=== PATIENT | female | born 1975 | race Caucasian/White ===

== ENCOUNTER 2016-07-19 16:33 | Observation (INO) | payer BC ==
[2016-07-19] MEDS ORDERED: AMBIEN PO PRN (17:43)
[2016-07-19] MEDS ORDERED: XANAX PO PRN (17:43)
--- NOTE | 2016-07-19 17:56 | DR.H&P ---
H&P - History & Physical for Day of: H&P Date: 07/19/16 - Chief Complaint Chief Complaint: CP, SOB - Allergies Allergies/Adverse Reactions: Allergies Allergy/AdvReac Type Severity Reaction Status Date / Time No Known Drug Allergy Allergy Verified 01/05/15 05:44 - History of Present Illness History of Present Illness: 40 [address] ADM[address] BRUCE OFFICE WITH CO CHEST PAIN AND SOB. PT HAS STRONG FAMILY HISTORY OF CAD. PT HAS UNCLE WITH CABG IN HIS LATE 30'S. PT CO INCREASE STRESS AT HOME, PT IS TAKING XANAX FOR ANXIETY ATTACKS WITHOUT RELIEF OF SOB. PT FEELS LIKE IS "SMOTHERING" - Past Medical History Past Medical History: Anxiety, Depression, GERD, Headaches - Past Surgical History Surgical History: Cholecystectomy - Family History Family Medical History: Diabetes Mellitus - Social History Does patient currently use any type of tobacco product: No Have you used tobacco products in the last 12 months: No Type of Tobacco Use: None Does any household member use tobacco: No Alcohol Use: None Drug Use: None - Review of Systems Constitutional: Weakness Eyes: No Symptoms Reported ENT: No Symptoms Reported Respiratory: Shortness of Breath Cardiovascular: Chest Pain Gastrointestinal: No Symptoms Reported Genitourinary: No Symptoms Reported Musculoskeletal: No Symptoms Reported Skin: No Symptoms Reported Neurological: No Symptoms Reported - Physical Exam Vital Signs: Blood Pressure 121/75 Oriented: Normal Eyes: Normal Ear: Normal Nose: Normal Throat: Normal Respiratory: Clear Throughout Cardiovascular: Normal. negative: Edema : Normal Auscultation: Bowel Sounds: Normal Palpation: Normal Tenderness: Epigastric Skin: Normal Psychiatric: Anxiety Mood Description: Sad Speech Pattern: Clear, Appropriate - Assessment/Plan (1) Chest pain Qualifiers: Chest pain type: C Ischemic chest pain type: I Status: Acute Plan: ADMIT, CARDIAC MONITORING. SERIAL CARDIAC ENZYMES, EKG'S. FLP Q AM. BP AND LIPID CONTROL. CXR ON ADMISSION, D DIMER (2) Shortness of breath Status: Acute (3) Anxiety as acute reaction to exceptional stress Status: Acute
[2016-07-19] MEDS ORDERED: LEXAPRO PO SCH (18:00)
[2016-07-19 18:13] LABS: BASOPHILS # (AUTO) 0.1 X10^3/uL (0.0-0.1); BASOPHILS % (AUTO) 0.9 % (0.2-1.0); EOSINOPHILS # (AUTO) 0.2 x10^3/uL (0.0-0.2); EOSINOPHILS % (AUTO) 1.9 % (0.9-2.9); HEMATOCRIT 37.2 % (36.0-47.0); HEMOGLOBIN 12.2 g/dL (12.0-16.0); LYMPHOCYTES # (AUTO) 2.9 X10^3/uL (1.3-2.9); LYMPHOCYTES % (AUTO) 30.3 % (21.0-51.0); MEAN CORPUSCULAR HEMOGLOBIN 27.6 pg (27.0-34.0); MEAN CORPUSCULAR HGB CONC 32.7 g/dL (33.0-35.0); MEAN CORPUSCULAR VOLUME 84.2 fL (80.0-100.0); MEAN PLATELET VOLUME 8.8 fL (7.4-11.0); MONOCYTES # (AUTO) 0.5 x10^3/uL (0.3-0.8); MONOCYTES % (AUTO) 5.3 % (0.0-13.0); NEUTROPHILS # (AUTO) 5.9 x10^3/uL (2.2-4.8); NEUTROPHILS % (AUTO) 61.6 % (42.0-75.0); PLATELET COUNT 282 X10^3/uL (150.0-450.0); RED BLOOD COUNT 4.41 X10^6/uL (3.5-5.4); RED CELL DISTRIBUTION WIDTH 13.1 % (11.6-16.5); WHITE BLOOD COUNT 9.6 X10^3/uL (3.6-10.0)
[2016-07-19 18:21] LABS: ALANINE AMINOTRANSFERASE 36 Units/L (12-78); ALBUMIN 3.8 g/dL (3.4-5.0); ALKALINE PHOSPHATASE 57 Units/L (46-116); ASPARTATE AMINO TRANSFERASE 18 Units/L (15-37); BLOOD UREA NITROGEN 8 mg/dL (7-18); CALCIUM 8.6 mg/dL (8.5-10.1); CARBON DIOXIDE 27.5 mmol/L (21-32); CHLORIDE 104 mmol/L (98-107); CREATININE 0.96 mg/dL (0.55-1.02); GLUCOSE 93 mg/dL (65-99); MAGNESIUM 1.8 mg/dL (1.7-2.9); SODIUM 142 mmol/L (136-145); eGFR BLACK RACES > 60 (>60); eGFR NON BLACK RACES > 60 (>60)
[2016-07-19] MEDS ORDERED: LEXAPRO ONE (18:32)
[2016-07-19] MEDS: PROTONIX INJ 40 MG VIAL IVP SCH (18:33)
[2016-07-19 18:35] LABS: CKMB % 0.9 % (<4); CREATINE KINASE 112 Units/L (26-192); CREATINE KINASE MB < 1.0 ng/mL (0-4.0); TROPONIN I < 0.02 ng/mL (0-1.5)
[2016-07-19 18:37] VITALS: BMI 29.1
[2016-07-19] MEDS: NORCO 7.5/325 MG TAB PO PRN ×2 (19:55→21:31)
[2016-07-19] MEDS: ZOFRAN INJ 4 MG VIAL IVP PRN (19:55)
[2016-07-19 19:57] LABS: BILIRUBIN,URINE NEGATIVE (NEGATIVE); BLOOD/HEMOGLOBIN,URINE 2+ (NEGATIVE); GLUCOSE, URINE NEGATIVE (NEGATIVE); KETONES,URINE NEGATIVE (NEGATIVE); LEUKOCYTE ESTERASE ,URINE 2+ (NEGATIVE); NITRITES,URINE NEGATIVE (NEGATIVE); PROTEIN,URINE NEGATIVE (NEGATIVE); UROBILINOGEN,URINE NORMAL (NORMAL)
--- NOTE | 2016-07-19 20:05 | RAD ---
Chest AP portable Indication: Chest pain and dyspnea. Findings: There is no pneumothorax or effusion. There is no consolidation. Heart size is normal. Impression: No acute chest process or change from May 19, 2011 radiograph. Reported By:
[2016-07-19 20:06] LABS: APPEARANCE,URINE HAZY (CLEAR); BACTERIA,URINE TRACE /HPF (NEGATIVE); COLOR,URINE YELLOW (YELLOW); RBC,URINE 0-2 /HPF (NEGATIVE); SQUAMOUS EPITHELIAL CELL,UR RARE /HPF (NEGATIVE)
[2016-07-20] MEDS: PHENERGAN INJ 25 MG IV PRN ×2 (00:10→10:38)
[2016-07-20 00:51] LABS: CREATINE KINASE 100 Units/L (26-192); CREATINE KINASE MB < 1.0 ng/mL (0-4.0); TROPONIN I < 0.02 ng/mL (0-1.5)
[2016-07-20 05:51] LABS: CHOL/HDL RATIO 5.4 (0.0-5.0)
[2016-07-20 06:12] LABS: CKMB % 1.1 % (<4); CREATINE KINASE 92 Units/L (26-192); CREATINE KINASE MB < 1.0 ng/mL (0-4.0); TROPONIN I < 0.02 ng/mL (0-1.5)
[2016-07-20] MEDS ORDERED: LEXAPRO ONE (08:25)
[2016-07-20] MEDS: ZOFRAN INJ 4 MG VIAL IVP PRN (08:50)
[2016-07-20] MEDS: PROTONIX INJ 40 MG VIAL IVP SCH (08:50)
[2016-07-20] MEDS ORDERED: LEXAPRO PO SCH (09:00)
[2016-07-20] MEDS ORDERED: VISTARIL PO ONE (12:13)
[2016-07-20 13:03] VITALS: BP 108/71
== END 2016-07-20 13:25 | disposition home or self-care (01) ==
LOC: ICU 16:33
PROVIDERS: ADMIT Internal Medicine; ATTEND Internal Medicine
DX: R07.89 Other chest pain (principal); R06.02 Shortness of breath; F32.89 Other specified depressive episodes; K21.9 Gastro-esophageal reflux disease without esophagitis; R51 Headache; F43.0 Acute stress reaction; F41.8 Other specified anxiety disorders
CPT/HCPCS: 36415; 71010; 80053; 80061; 81001; 82550; 82553; 83735; 84484; 85025; 85378; 85610; 93005; 93010; 94760; A4216; A4222; C9113; Q0177; G0378; J2405; J2550

== ENCOUNTER 2018-07-25 10:16 | Inpatient (IN) ==
[2018-07-25] MEDS ORDERED: ZOFRAN INJ 4 MG VIAL IVP PRN (11:28)
[2018-07-25 11:48] LABS: BASOPHILS % (AUTO) 0.3 % (0.2-1.0); EOSINOPHILS # (AUTO) 0.3 x10^3/uL (0.0-0.2); EOSINOPHILS % (AUTO) 2.1 % (0.9-2.9); HEMATOCRIT 43.8 % (36.0-47.0); HEMOGLOBIN 14.5 g/dL (12.0-16.0); LYMPHOCYTES # (AUTO) 1.3 X10^3/uL (1.3-2.9); LYMPHOCYTES % (AUTO) 8.5 % (21.0-51.0); MEAN CORPUSCULAR HEMOGLOBIN 29.4 pg (27.0-34.0); MEAN CORPUSCULAR VOLUME 88.9 fL (80.0-100.0); MEAN PLATELET VOLUME 8.8 fL (7.4-11.0); MONOCYTES # (AUTO) 0.6 x10^3/uL (0.3-0.8); MONOCYTES % (AUTO) 3.6 % (0.0-13.0); NEUTROPHILS # (AUTO) 13.1 x10^3/uL (2.2-4.8); NEUTROPHILS % (AUTO) 85.5 % (42.0-75.0); PLATELET COUNT 324 X10^3/uL (150.0-450.0); RED BLOOD COUNT 4.92 X10^6/uL (3.5-5.4); RED CELL DISTRIBUTION WIDTH 12.6 % (11.6-16.5); WHITE BLOOD COUNT 15.3 X10^3/uL (3.6-10.0)
[2018-07-25 11:59] LABS: ALANINE AMINOTRANSFERASE 87 Units/L (12-78); ALBUMIN 4.3 g/dL (3.4-5.0); ALKALINE PHOSPHATASE 107 Units/L (46-116); AMYLASE 37 Units/L (25-115); ASPARTATE AMINO TRANSFERASE 111 Units/L (15-37); BLOOD UREA NITROGEN 8 mg/dL (7-18); CARBON DIOXIDE 21.4 mmol/L (21-32); CHLORIDE 105 mmol/L (98-107); CREATININE 0.82 mg/dL (0.55-1.02); LIPASE 341 Units/L (73-393); SODIUM 140 mmol/L (136-145); TOTAL PROTEIN 8.5 g/dL (6.4-8.2); eGFR NON BLACK RACES > 60 (>60)
[2018-07-25] MEDS: NS 1000 ML 1,000 ML IV SCH ×2 (11:59→20:31)
[2018-07-25] MEDS: REGLAN INJ 10 MG VIAL IVP PRN (11:59)
[2018-07-25] MEDS: MORPHINE SULFATE INJ 2 MG INJ IVP PRN ×2 (12:00→20:30)
--- NOTE | 2018-07-25 12:07 | RAD ---
HISTORY: Abdominal pain, nausea, vomiting Study: Flat and upright abdomen, PA chest Comparison: None Findings: The heart is within normal limits in size. The dayanara are normal. The lung palacios are clear. The abdominal gas pattern is nonspecific and nonobstructive. There is a question of a mild right lower quadrant ileus. No pneumoperitoneum is identified. The regional skeleton is intact. The patient is status post cholecystectomy. IMPRESSION: Lungs clear Mild right lower quadrant ileus. A right lower quadrant inflammatory process should be clinically excluded. Reported By:
[2018-07-25 12:28] LABS: BILIRUBIN,URINE NEGATIVE (NEGATIVE); BLOOD/HEMOGLOBIN,URINE 2+ (NEGATIVE); GLUCOSE, URINE NEGATIVE (NEGATIVE); KETONES,URINE NEGATIVE (NEGATIVE); LEUKOCYTE ESTERASE ,URINE NEGATIVE (NEGATIVE); NITRITES,URINE NEGATIVE (NEGATIVE); PROTEIN,URINE NEGATIVE (NEGATIVE); UROBILINOGEN,URINE NORMAL (NORMAL)
[2018-07-25 12:39] LABS: APPEARANCE,URINE CLEAR (CLEAR); COLOR,URINE YELLOW (YELLOW); RBC,URINE 0-2 /HPF (NONE SEEN)
[2018-07-25 12:40] LABS: BACTERIA,URINE NEGATIVE /HPF (NEGATIVE); SQUAMOUS EPITHELIAL CELL,UR RARE /HPF (NEGATIVE)
--- NOTE | 2018-07-25 17:37 | DR.H&P ---
H&P - History & Physical for Day of: H&P Date: 07/25/18 - Chief Complaint Chief Complaint: ABDOMINAL PAIN, N/V/D - History of Present Illness History of Present Illness: 42 WF DIRECT ADMITTED FROM DR BRUCE WITH CO VIRUS SYMPTOMS FOR OVER 2 WEEKS. PT HAD N/V/D 2 WEEKS AGO, TREATED WITH PO PHENERGAN, ZOFRAN AND PO HYDRATION. PT CONTINUES WITH CO ABDOMINAL PAIN, N/V, BLOATING. PT STATES SHE CANNOT EAT DUE TO SEVERE ABDOMINAL PAIN. PT HAS BEEN EXPOSED TO C-DIFF INFECTION. PT REPORTS "SULFUR BURPS" PT ADMITTED FOR TREATMENT OF DEHYDRATION, ABDOMINAL PAIN - Past Medical History Past Medical History: Anxiety, Depression, GERD, Headaches - Past Surgical History Surgical History: Cholecystectomy, Tonsillectomy - Family History Family Medical History: Diabetes Mellitus - Social History Does patient currently use any type of tobacco product: No Have you used tobacco products in the last 12 months: No Type of Tobacco Use: None Does any household member use tobacco: No Alcohol Use: None Drug Use: None - Medications Home Medications: No Known Drug Allergies Allergy (Verified 07/25/18 11:02) CONTINUE taking the following medications bupropion HCl 1 tab PO DAILY 07/25/18 [History] metoclopramide HCl [Reglan] 10 mg PO QID PRN 07/25/18 [History] - Review of Systems Constitutional: Weakness Eyes: No Symptoms Reported ENT: No Symptoms Reported Respiratory: No Symptoms Reported Cardiovascular: No Symptoms Reported Gastrointestinal: No Symptoms Reported Genitourinary: No Symptoms Reported Musculoskeletal: No Symptoms Reported Skin: No Symptoms Reported Neurological: Weakness - Physical Exam Vital Signs: Temperature 97.9 F Pulse Rate [Left Brachial] 80 Pulse Rate [Right Brachial] 93 Respiratory Rate 20 Blood Pressure [Right Arm] 122/59 Blood Pressure [Left Arm] 93/53 Blood Pressure 108/71 O2 Sat by Pulse Oximetry 99 Oriented: Normal Eyes: Normal Ear: Normal Nose: Normal Throat: Dry Respiratory: Clear Throughout Cardiovascular: Tachycardia : Normal Auscultation: Bowel Sounds: Increased Tenderness: Epigastric Skin: Decreased Turgur Musculoskeletal: Normal Psychiatric: Anxiety Affect: Anxious Speech Pattern: Clear, Appropriate - Assessment/Plan (1) Abdominal pain Status: Acute Plan: ADMIT, ABD SERIES. ADMISSION LABS CBC CMP UA. PAIN CONTROL, AMYLASE AND LIPASE. NAUSEA CONTROL (2) Nausea vomiting and diarrhea Status: Acute (3) Dehydration Status: Acute - Allergies Allergies/Adverse Reactions: Allergies Allergy/AdvReac Type Severity Reaction Status Date / Time No Known Drug Allergies Allergy Verified 07/25/18 11:02
[2018-07-25] MEDS ORDERED: ZITHROMAX INJ 500 MG VIAL ONE (18:00)
[2018-07-25] MEDS ORDERED: NS 250 ML IV 250 ML ONE (18:00)
[2018-07-25] MEDS: ZITHROMAX INJ 500 MG VIAL 500 MG in NS 250 ML IV 250 ML IV SCH (18:00)
[2018-07-25 20:48] LABS: STOOL FOR WBC POSITIVE (NEGATIVE)
[2018-07-25 21:18] LABS: CRYPTOSPORIDIUM PARVUM ANTIGEN NEGATIVE (NEGATIVE); GIARDIA LAMBLIA ANTIGEN NEGATIVE (NEGATIVE)
[2018-07-26] MEDS ORDERED: TYLENOL 325 MG TAB PO ONE (04:00)
[2018-07-26] MEDS: TYLENOL 325 MG TAB PO PRN ×2 (04:04→20:44)
[2018-07-26] MEDS: NS 1000 ML 1,000 ML IV SCH ×3 (04:09→21:29)
[2018-07-26] MEDS: MORPHINE SULFATE INJ 2 MG INJ IVP PRN ×3 (05:07→18:09)
[2018-07-26] MEDS: REGLAN INJ 10 MG VIAL IVP PRN ×2 (05:08→11:10)
[2018-07-26 05:20] LABS: BASOPHILS % (AUTO) 0.5 % (0.2-1.0); EOSINOPHILS # (AUTO) 0.5 x10^3/uL (0.0-0.2); EOSINOPHILS % (AUTO) 7.6 % (0.9-2.9); HEMATOCRIT 34.6 % (36.0-47.0); HEMOGLOBIN 11.6 g/dL (12.0-16.0); LYMPHOCYTES # (AUTO) 1.4 X10^3/uL (1.3-2.9); LYMPHOCYTES % (AUTO) 23.6 % (21.0-51.0); MEAN CORPUSCULAR HEMOGLOBIN 29.7 pg (27.0-34.0); MEAN CORPUSCULAR HGB CONC 33.5 g/dL (33.0-35.0); MEAN CORPUSCULAR VOLUME 88.7 fL (80.0-100.0); MEAN PLATELET VOLUME 8.6 fL (7.4-11.0); MONOCYTES # (AUTO) 0.3 x10^3/uL (0.3-0.8); MONOCYTES % (AUTO) 5.1 % (0.0-13.0); NEUTROPHILS # (AUTO) 3.8 x10^3/uL (2.2-4.8); NEUTROPHILS % (AUTO) 63.2 % (42.0-75.0); PLATELET COUNT 308 X10^3/uL (150.0-450.0); RED CELL DISTRIBUTION WIDTH 12.7 % (11.6-16.5); WHITE BLOOD COUNT 6.1 X10^3/uL (3.6-10.0)
[2018-07-26 05:35] LABS: ALANINE AMINOTRANSFERASE 95 Units/L (12-78); ALKALINE PHOSPHATASE 103 Units/L (46-116); ASPARTATE AMINO TRANSFERASE 54 Units/L (15-37); BLOOD UREA NITROGEN 8 mg/dL (7-18); CALCIUM 8.1 mg/dL (8.5-10.1); CARBON DIOXIDE 21.5 mmol/L (21-32); CHLORIDE 110 mmol/L (98-107); COR CA(FOR HYPOALB) 8.9 mg/dL (8.5-10.1); CREATININE 0.86 mg/dL (0.55-1.02); SODIUM 142 mmol/L (136-145); TOTAL PROTEIN 6.1 g/dL (6.4-8.2); eGFR NON BLACK RACES > 60 (>60)
[2018-07-26] MEDS ORDERED: POTASSIUM CHL 60 MEQ/NS 0.45% 500 ML IV PRN (05:58)
[2018-07-26] MEDS ORDERED: POTASSIUM CHL 40 MEQ/NS 0.45% 500 ML IV PRN (05:58)
[2018-07-26] MEDS ORDERED: KLOR-CON PO PRN (05:58)
[2018-07-26] MEDS ORDERED: MICRO K EXTEN CAP 10 MEQ PO PRN (05:58)
[2018-07-26] MEDS ORDERED: POTASSIUM CHLORIDE LIQ 20 MEQ UDC PO PRN (05:58)
[2018-07-26] MEDS ORDERED: K-DUR TAB 20 MEQ PO PRN (05:58)
[2018-07-26] MEDS: K-RIDER 10 MEQ/NS 100 ML 10 MEQ/100 ML BAG IV PRN ×4 (06:40→18:05)
[2018-07-26 07:56] VITALS: BMI 29.4
[2018-07-26] MEDS: MAGNESIUM SULFATE 1 GRAM/100 mL PREMIX 1 GM/100 ML BAG IV PRN ×2 (09:30→11:15)
[2018-07-26] MEDS: ZITHROMAX INJ 500 MG VIAL 500 MG in NS 250 ML IV 250 ML IV SCH (11:10)
[2018-07-26] MEDS: FLAGYL IV PREMIX 500 MG BAG 500 MG/100 ML BAG IV SCH ×3 (14:00→20:27)
--- NOTE | 2018-07-26 14:06 | CT ---
CT OF THE ABDOMEN AND PELVIS WITH CONTRAST HISTORY: Epigastric pain Comparison: 01/05/2018 Technique: Multiple axial images of the abdomen and pelvis were obtained from the lung bases to the pubic symphysis follow the administration of IV contrast as well as oral contrast. Dose reduction techniques including Automated Exposure Control (AEC) and adjustment of mA and kV were utlized. Findings: The heart is normal in size. There is no pericardial effusion. Lung bases are clear without focal consolidation, pleural effusion or pneumothorax. Liver and spleen are normal in size, enhancement characteristics and contour. No focal lesions. The portal vein is patent. No ductal dilitation. Gallbladder absent. The pancreas is unremarkable. Adrenal glands are normal. Kidneys enhance symmetrically without hydronephrosis or nephrolithiasis. No bowel obstruction or inflammation. Normal appendix. No abnormal appearing mesenteric or retroperitoneal lymph nodes. No free fluid or fluid collections. The bladder is normal in appearance. Uterus present. No free fluid or abnormal pelvic lymph nodes. No aggressive osseous lesions. IMPRESSION: 1. No definite source of patient's epigastric/periumbilical pain is identified on this examination Reported By:
--- NOTE | 2018-07-26 17:06 | PCM.PROG ---
Progress Note - Progress Note for Day of Date of Exam: 07/26/18 - Subjective Subjective: 42 WF ADMITTED ON 07/25 WITH ABDOMINAL PAIN. WBC ON ADMISSION 15.3. PT HAD ABD SERIES WITH COLONIC ILEUS WITH RLQ INFLAMMATION. PT WAS STARTED ON IV HYDRATION, PAIN CONTROL, ZITHROMAX. PT STOOL +WBC, OCCULT +. PT DID REPORT HX OF HEMORRHOIDS. PT NPO FOR CT SCAN ABD PELVIS THIS AM. D/C ZITHROMAX AND STARTED ON IV FLAGYL. PT CO CONTINUES REFLUX, UPPER ABDOMINAL TENDERNESS LIKE "GASTRITIS". PT IS ON PPI. WILL START ON CLEAR LIQUIDS POST CT IF NAUSEA IS CONTROLLED. - Past Medical Family Social History Past Med/Fam/Surg Hx: No changes since H&P Allergies: Allergies No Known Drug Allergies Allergy (Verified 07/25/18 11:02) - Review of Systems ROS: No change since H&P - Vital Signs and I&O's Vital Signs: Temperature 98 F Pulse Rate [Left Brachial] 74 Pulse Rate [Right Brachial] 93 Respiratory Rate 20 Blood Pressure [Right Arm] 122/59 Blood Pressure [Left Arm] 96/47 Blood Pressure 108/71 O2 Sat by Pulse Oximetry 98 Intake and Output: Intake & Output 07/24/18 07/25/18 07/26/18 07/27/18 11:59 11:59 11:59 11:59 Intake Total 1590 / 1590 1400 / 1400 Balance 1590 / 1590 1400 / 1400 - Physical Exam Oriented: Normal Eyes: Normal Ear: Normal Nose: Normal Throat: Dry Cardiovascular: Tachycardia : Normal Auscultation: Bowel Sounds: Increased Tenderness: RUQ, Epigastric Skin: Decreased Turgur Musculoskeletal: Normal Psychiatric: Anxiety Affect: Anxious Speech Pattern: Clear, Appropriate - Laboratory and Diagnostics Result Diagrams: 07/26/18 04:40 07/26/18 14:48 Labs: 07/25/18 20:14 Stool Stool Culture - Preliminary 07/25/18 20:14 Stool - Final Laboratory WBC 6.1 X10^3/uL (3.6-10.0) D 07/26/18 04:40 RBC 3.90 X10^6/uL (3.5-5.4) 07/26/18 04:40 Hgb 11.6 g/dL (12.0-16.0) L D 07/26/18 04:40 Hct 34.6 % (36.0-47.0) L 07/26/18 04:40 MCV 88.7 fL (80.0-100.0) 07/26/18 04:40 MCH 29.7 pg (27.0-34.0) 07/26/18 04:40 MCHC 33.5 g/dL (33.0-35.0) 07/26/18 04:40 RDW 12.7 % (11.6-16.5) 07/26/18 04:40 Plt Count 308 X10^3/uL (150.0-450.0) 07/26/18 04:40 MPV 8.6 fL (7.4-11.0) 07/26/18 04:40 Neut % (Auto) 63.2 % (42.0-75.0) 07/26/18 04:40 Lymph % (Auto) 23.6 % (21.0-51.0) 07/26/18 04:40 [place] % (Auto) 5.1 % (0.0-13.0) 07/26/18 04:40 Eos % (Auto) 7.6 % (0.9-2.9) H 07/26/18 04:40 Baso % (Auto) 0.5 % (0.2-1.0) 07/26/18 04:40 Neut # (Auto) 3.8 x10^3/uL (2.2-4.8) 07/26/18 04:40 Lymph # (Auto) 1.4 X10^3/uL (1.3-2.9) 07/26/18 04:40 [place] # (Auto) 0.3 x10^3/uL (0.3-0.8) 07/26/18 04:40 Eos # (Auto) 0.5 x10^3/uL (0.0-0.2) H 07/26/18 04:40 Baso # (Auto) 0.0 X10^3/uL (0.0-0.1) 07/26/18 04:40 Absolute Nucleated RBC 0.0 /100WBC 07/26/18 04:40 Sodium 142 mmol/L (136-145) 07/26/18 04:40 Corrected Sodium TNP 07/26/18 04:40 Potassium 3.4 mmol/L (3.5-5.1) L 07/26/18 14:48 Chloride 110 mmol/L (98-107) H 07/26/18 04:40 Carbon Dioxide 21.5 mmol/L (21-32) 07/26/18 04:40 BUN 8 mg/dL (7-18) 07/26/18 04:40 Creatinine 0.86 mg/dL (0.55-1.02) 07/26/18 04:40 Est GFR (MDRD) Af Amer > 60 (>60) 07/26/18 04:40 Est GFR (MDRD) Non-Af > 60 (>60) 07/26/18 04:40 Glucose 90 mg/dL (65-99) 07/26/18 04:40 Calcium 8.1 mg/dL (8.5-10.1) L 07/26/18 04:40 Corrected Calcium 8.9 mg/dL (8.5-10.1) 07/26/18 04:40 Magnesium 1.8 mg/dL (1.7-2.9) 07/26/18 04:40 Total Bilirubin 1.40 mg/dL (0.2-1.0) H 07/26/18 04:40 AST 54 Units/L (15-37) H 07/26/18 04:40 ALT 95 Units/L (12-78) H 07/26/18 04:40 Alkaline Phosphatase 103 Units/L (46-116) 07/26/18 04:40 Total Protein 6.1 g/dL (6.4-8.2) L 07/26/18 04:40 Albumin 3.0 g/dL (3.4-5.0) L 07/26/18 04:40 Globulin 3.1 g/dL (2.5-4.5) 07/26/18 04:40 Albumin/Globulin Ratio 1.0 Ratio (1.1-2.1) L 07/26/18 04:40 Amylase 37 Units/L (25-115) 07/25/18 11:38 Lipase 341 Units/L (73-393) 07/25/18 11:38 Specimen Type Clean catch urine 07/25/18 12:00 Urine Color Yellow (YELLOW) 07/25/18 12:00 Urine Appearance Clear (CLEAR) 07/25/18 12:00 Urine pH 5.0 (5.0 - 8.0) 07/25/18 12:00 Ur Specific [place] 1.010 (1.000-1.030) 07/25/18 12:00 Urine Protein Negative (NEGATIVE) 07/25/18 12:00 Urine Glucose (UA) Negative (NEGATIVE) 07/25/18 12:00 Urine Ketones Negative (NEGATIVE) 07/25/18 12:00 Urine Occult Blood 2+ (NEGATIVE) 07/25/18 12:00 Urine Nitrite Negative (NEGATIVE) 07/25/18 12:00 Urine Bilirubin Negative (NEGATIVE) 07/25/18 12:00 Urine Urobilinogen Normal (NORMAL) 07/25/18 12:00 Ur Leukocyte Esterase Negative (NEGATIVE) 07/25/18 12:00 Urine RBC 0-2 /HPF (NONE SEEN) 07/25/18 12:00 Urine WBC 0-2 /HPF (NONE SEEN) 07/25/18 12:00 Ur Squamous Epith Cells Rare /HPF (NEGATIVE) 07/25/18 12:00 Urine Bacteria Negative /HPF (NEGATIVE) 07/25/18 12:00 Ur Culture Indicated? No/not indicated 07/25/18 12:00 Stool Description 50g,liquid,brown 07/25/18 20:14 Stl Occult Blood (IFOB) Positive (NEGATIVE) A 07/25/18 20:14 Stool for White Cells Positive (NEGATIVE) A 07/25/18 20:14 Stl C. diff Tox B Gene Negative (NEGATIVE) 07/25/18 20:14 Stl C. diff [id number] Negative (NEGATIVE) 07/25/18 20:14 Stool H. pylori Ag Negative (NEGATIVE) 07/25/18 20:14 Cryptosporid parvum Ag Negative (NEGATIVE) 07/25/18 20:14 Giardia lamblia Ag Negative (NEGATIVE) 07/25/18 20:14 - Plan (1) Abdominal pain Status: Acute Plan: ADMIT, ABD SERIES. ADMISSION LABS CBC CMP UA. PAIN CONTROL, AMYLASE AND LIPASE. NAUSEA CONTROL (2) Nausea vomiting and diarrhea Status: Acute (3) Dehydration Status: Acute
[2018-07-26] MEDS ORDERED: XANAX PO PRN (20:59)
[2018-07-26] MEDS ORDERED: AMBIEN PO PRN (20:59)
[2018-07-27] MEDS: FLAGYL IV PREMIX 500 MG BAG 500 MG/100 ML BAG IV SCH ×2 (02:47→08:59)
[2018-07-27] MEDS: NS 1000 ML 1,000 ML IV SCH ×3 (02:48→13:53)
[2018-07-27 05:21] LABS: BASOPHILS % (AUTO) 0.5 % (0.2-1.0); EOSINOPHILS # (AUTO) 0.4 x10^3/uL (0.0-0.2); EOSINOPHILS % (AUTO) 6.8 % (0.9-2.9); HEMATOCRIT 34.6 % (36.0-47.0); HEMOGLOBIN 11.7 g/dL (12.0-16.0); LYMPHOCYTES # (AUTO) 1.8 X10^3/uL (1.3-2.9); LYMPHOCYTES % (AUTO) 31.7 % (21.0-51.0); MEAN CORPUSCULAR HEMOGLOBIN 29.7 pg (27.0-34.0); MEAN CORPUSCULAR HGB CONC 33.9 g/dL (33.0-35.0); MEAN CORPUSCULAR VOLUME 87.5 fL (80.0-100.0); MEAN PLATELET VOLUME 8.9 fL (7.4-11.0); MONOCYTES # (AUTO) 0.3 x10^3/uL (0.3-0.8); MONOCYTES % (AUTO) 5.9 % (0.0-13.0); NEUTROPHILS # (AUTO) 3.1 x10^3/uL (2.2-4.8); NEUTROPHILS % (AUTO) 55.1 % (42.0-75.0); PLATELET COUNT 272 X10^3/uL (150.0-450.0); RED BLOOD COUNT 3.96 X10^6/uL (3.5-5.4); RED CELL DISTRIBUTION WIDTH 12.4 % (11.6-16.5); WHITE BLOOD COUNT 5.7 X10^3/uL (3.6-10.0)
[2018-07-27 05:33] LABS: ALANINE AMINOTRANSFERASE 68 Units/L (12-78); ALBUMIN 3.2 g/dL (3.4-5.0); ALKALINE PHOSPHATASE 95 Units/L (46-116); ASPARTATE AMINO TRANSFERASE 27 Units/L (15-37); BLOOD UREA NITROGEN 4 mg/dL (7-18); CALCIUM 8.1 mg/dL (8.5-10.1); CARBON DIOXIDE 22.3 mmol/L (21-32); CHLORIDE 108 mmol/L (98-107); COR CA(FOR HYPOALB) 8.7 mg/dL (8.5-10.1); CREATININE 0.84 mg/dL (0.55-1.02); SODIUM 140 mmol/L (136-145); TOTAL PROTEIN 6.5 g/dL (6.4-8.2); eGFR NON BLACK RACES > 60 (>60)
[2018-07-27] MEDS ORDERED: ZESTRIL TAB 5 MG PO SCH (09:00)
[2018-07-27] MEDS ORDERED: WELLBUTRIN XL 150 MG (DAILY) PO SCH (09:00)
[2018-07-27] MEDS: MORPHINE SULFATE INJ 2 MG INJ IVP PRN (09:01)
[2018-07-27] MEDS: MAGNESIUM SULFATE 1 GRAM/100 mL PREMIX 1 GM/100 ML BAG IV PRN (09:02)
[2018-07-27] MEDS ORDERED: PEPCID 20 MG IV PREMIX* 20 MG/50 ML BAG IV ONE (09:43)
[2018-07-27] MEDS ORDERED: PROTONIX INJ 40 MG VIAL IVP SCH (10:00)
[2018-07-27] MEDS ORDERED: LR 1000 ML IV 1,000 ML ONE (10:07)
[2018-07-27] MEDS ORDERED: DIPRIVAN VIAL 20 ML ONE (10:15)
--- NOTE | 2018-07-27 10:39 | OR.GENERIC ---
Post-Op Note Generic - Post-Op Note Operative Report: EGD with Bx. finding: acute gastro duodenitis and multiple duodenal bulb ulcers . no bleeding or obstruction.. will start on protonix 40 BID and Carafate one gm tid . keep on bland diet .
[2018-07-27] MEDS ORDERED: CARAFATE PO SCH (11:30)
[2018-07-27 12:41] VITALS: BP 99/56
[2018-07-27] MEDS ORDERED: PROTONIX TAB 40 MG PO SCH (15:00)
== END 2018-07-27 15:25 | disposition home or self-care (01) | DRG 388 ==
LOC: MED/SURG → OBSVTOIN 10:36
PROVIDERS: ADMIT Internal Medicine; ATTEND Internal Medicine
DX: R10.13 Epigastric pain; K21.9 Gastro-esophageal reflux disease without esophagitis; R19.7 Diarrhea, unspecified; K26.4 Chronic or unspecified duodenal ulcer with hemorrhage; K29.60 Other gastritis without bleeding; F41.8 Other specified anxiety disorders; I10 Essential (primary) hypertension; R11.2 Nausea with vomiting, unspecified; K56.7 Ileus, unspecified; R10.84 Generalized abdominal pain; K52.89 Other specified noninfective gastroenteritis and colitis; E86.0 Dehydration
CPT/HCPCS: 36415; 74022; 74177; 80053; 81001; 82150; 82270; 83630; 83690; 83735; 84132; 85025; 87045; 87328; 87329; 87338; 87427; 87449; 87493; 87899; A4222; C9113; S0028; S0030; S0106; J0456; J2270; J2405; J2704; J2765; J3475; J3480; J3490; J7030; J7050; J7120

== ENCOUNTER 2019-01-10 10:49 | Observation (INO) ==
[2019-01-10 12:17] VITALS: BMI 29.5
[2019-01-10] MEDS ORDERED: NS 1000 ML 1,000 ML ONE (13:11)
[2019-01-10] MEDS ORDERED: ZOFRAN INJ 4 MG VIAL ONE (13:21)
[2019-01-10] MEDS: NS 1000 ML 1,000 ML IV SCH ×2 (13:23→22:33)
[2019-01-10] MEDS: ZOFRAN INJ 4 MG VIAL IVP PRN ×2 (13:23→22:34)
[2019-01-10 13:30] LABS: BASOPHILS # (AUTO) 0.1 X10^3/uL (0.0-0.1); BASOPHILS % (AUTO) 0.6 % (0.2-1.0); EOSINOPHILS # (AUTO) 0.1 x10^3/uL (0.0-0.2); EOSINOPHILS % (AUTO) 0.5 % (0.9-2.9); HEMATOCRIT 39.6 % (36.0-47.0); HEMOGLOBIN 13.5 g/dL (12.0-16.0); LYMPHOCYTES # (AUTO) 2.4 X10^3/uL (1.3-2.9); LYMPHOCYTES % (AUTO) 25.3 % (21.0-51.0); MEAN CORPUSCULAR HEMOGLOBIN 29.7 pg (27.0-34.0); MEAN CORPUSCULAR HGB CONC 34.2 g/dL (33.0-35.0); MEAN CORPUSCULAR VOLUME 86.7 fL (80.0-100.0); MEAN PLATELET VOLUME 7.6 fL (7.4-11.0); MONOCYTES # (AUTO) 0.4 x10^3/uL (0.3-0.8); MONOCYTES % (AUTO) 4.4 % (0.0-13.0); NEUTROPHILS # (AUTO) 6.5 x10^3/uL (2.2-4.8); NEUTROPHILS % (AUTO) 69.2 % (42.0-75.0); PLATELET COUNT 282 X10^3/uL (150.0-450.0); RED BLOOD COUNT 4.56 X10^6/uL (3.5-5.4); WHITE BLOOD COUNT 9.4 X10^3/uL (3.6-10.0)
[2019-01-10] MEDS ORDERED: REGLAN INJ 10 MG VIAL ONE (13:31)
[2019-01-10] MEDS: REGLAN INJ 10 MG VIAL IVP PRN ×2 (13:32→19:48)
--- NOTE | 2019-01-10 13:42 | RAD ---
HISTORY: Abdominal pain, nausea, vomiting, diarrhea Study: Acute abdominal series Comparison: 07/25/2018. Findings: The trachea is midline. The cardiac silhouette is unremarkable. The lungs are clear without focal infiltrate or effusion. The bony thorax is unremarkable. Flat plate and upright evaluation of the abdomen demonstrates a increase in small bowel gas present in the mid epigastric region. Air and stool are present throughout the colon. Findings have the appearance of a small bowel ileus. No bowel obstruction or perforation is seen. There is no evidence of free intraperitoneal air or fluid. There are surgical clips from cholecystectomy.. No pathological soft tissue mass or calcification can be observed. The bony structures are grossly intact. IMPRESSION: 1. No acute cardiopulmonary disease. 2. Mild small bowel ileus pattern without evidence of bowel obstruction or perforation. Reported By:
[2019-01-10 13:47] LABS: ALANINE AMINOTRANSFERASE 24 Units/L (12-78); ALKALINE PHOSPHATASE 60 Units/L (46-116); AMYLASE 33 Units/L (25-115); ASPARTATE AMINO TRANSFERASE 11 Units/L (15-37); BLOOD UREA NITROGEN 9 mg/dL (7-18); CALCIUM 8.4 mg/dL (8.5-10.1); CARBON DIOXIDE 23.2 mmol/L (21-32); CHLORIDE 105 mmol/L (98-107); CREATININE 1.12 mg/dL (0.55-1.02); LIPASE 175 Units/L (73-393); SODIUM 140 mmol/L (136-145); eGFR NON BLACK RACES 57 (>60)
[2019-01-10] MEDS ORDERED: MORPHINE SULFATE INJ 2 MG INJ ONE (17:11)
[2019-01-10] MEDS: MORPHINE SULFATE INJ 2 MG INJ IVP PRN ×2 (17:14→22:35)
[2019-01-10] MEDS ORDERED: XANAX PO PRN (18:05)
[2019-01-10] MEDS ORDERED: AMBIEN PO PRN (18:05)
--- NOTE | 2019-01-10 18:11 | DR.H&P ---
H&P - History & Physical for Day of: H&P Date: 01/10/19 - Chief Complaint Chief Complaint: INTRACTABLE UPPER ABDOMINAL PAIN, N/V/D - History of Present Illness History of Present Illness: 43 WF DIRECT ADMIT FROM DR BRUCE OFFICE AFTER PRESENTING WITH CO INTRACTABLE UPPER ABDOMINAL PAIN, N/V/D. PT HAD A STOMACH VIRUS 3-4 DAYS AGO AND HAS NOT IMPROVED. PT HAD BEEN TAKING BENTYL, PROTONIX, PHENERGAN AND REGLAN WITHOUT IMPROVEMENT. PT STATES SHE IS BELCHING FOOD SHE ATE A WEEK AGO. PT HAS HX OF GASTRICT ULCERS AND DISTAL ESOHPAGITIS. PT ADMITTED FOR TREATMENT AND EVALUATION OF ACUTE ILLNESS. - Past Medical History Past Medical History: Anxiety, Depression, GERD, Headaches - Past Surgical History Surgical History: Cholecystectomy, Tonsillectomy - Family History Family Medical History: Diabetes Mellitus - Social History Does patient currently use any type of tobacco product: No Have you used tobacco products in the last 12 months: No Type of Tobacco Use: None Does any household member use tobacco: No Alcohol Use: None Drug Use: None - Medications Home Medications: No Known Drug Allergies Allergy (Verified 07/25/18 11:02) - Review of Systems Constitutional: Weakness Eyes: No Symptoms Reported ENT: No Symptoms Reported Respiratory: No Symptoms Reported Cardiovascular: No Symptoms Reported Gastrointestinal: Nausea, Vomiting, Abdominal Pain, Diarrhea Musculoskeletal: Back Pain (MID BACK PAIN) Skin: No Symptoms Reported Neurological: No Symptoms Reported - Physical Exam Vital Signs: Temperature 98.2 F Pulse Rate [Right Brachial] 66 Respiratory Rate 18 Blood Pressure [Right Arm] 108/59 Blood Pressure [Left Arm] 99/56 O2 Sat by Pulse Oximetry 98 Oriented: Normal Eyes: Normal Ear: Normal Nose: Normal Throat: Normal Respiratory: Clear Throughout Cardiovascular: Normal Auscultation: Bowel Sounds: Increased Palpation: Normal Tenderness: Diffuse, Epigastric, Moderate Skin: Decreased Turgur Musculoskeletal: Normal Psychiatric: Anxiety Affect: Anxious Speech Pattern: Clear, Appropriate - Assessment/Plan (1) Acute gastroenteritis Status: Acute Plan: ADMIT, IV HYDRATION. PAIN AND NAUSEA CONTROL. PPI THERAPY, ADMISSION LABS. ABD SERIES ON ADMISSION, R/O OBTRUCTION. OBTAIN AM CT ABD/PELVIS WITH CONTRAST, VERIFY HOME MEDICATIONS (2) Dehydration Status: Acute (3) Nausea vomiting and diarrhea Status: Acute (4) Anxiety Status: Chronic (5) HTN (hypertension) Status: Chronic - Allergies Allergies/Adverse Reactions: Allergies Allergy/AdvReac Type Severity Reaction Status Date / Time No Known Drug Allergies Allergy Verified 07/25/18 11:02
[2019-01-10] MEDS ORDERED: WELLBUTRIN XL 150 MG (DAILY) PO SCH (19:00)
[2019-01-10] MEDS: LEVSIN/MAALOX/LIDOC VISC PO SCH ×2 (19:48→21:15)
[2019-01-10] MEDS: PROTONIX INJ 40 MG VIAL IVP SCH (21:15)
[2019-01-10 21:29] LABS: BILIRUBIN,URINE NEGATIVE (NEGATIVE); BLOOD/HEMOGLOBIN,URINE 3+ (NEGATIVE); GLUCOSE, URINE NEGATIVE (NEGATIVE); KETONES,URINE NEGATIVE (NEGATIVE); LEUKOCYTE ESTERASE ,URINE 1+ (NEGATIVE); NITRITES,URINE NEGATIVE (NEGATIVE); PROTEIN,URINE NEGATIVE (NEGATIVE); UROBILINOGEN,URINE NORMAL (NORMAL)
[2019-01-10 21:41] LABS: APPEARANCE,URINE SLIGHTLY HAZY (CLEAR); BACTERIA,URINE 1+ /HPF (NEGATIVE); COLOR,URINE YELLOW (YELLOW); SQUAMOUS EPITHELIAL CELL,UR FEW /HPF (NEGATIVE)
[2019-01-11] MEDS ORDERED: PHENERGAN INJ 25 MG IM PRN (01:04)
[2019-01-11] MEDS ORDERED: PHENERGAN INJ 25 MG IM ONE (01:36)
--- NOTE | 2019-01-11 02:46 | CT ---
CT abdomen and pelvis with contrast Indication: Abdominal pain after recent viral illness. Comparison: 07/26/2018 Technique: Helical images through the abdomen pelvis after oral and IV contrast. Coronal sagittal reformats provided Findings: Limited images through the lower chest show no acute abnormality. Review of bone windows shows no osseous lesion Abdomen: The gallbladder is absent. The liver, spleen, pancreas, adrenal glands, stomach and small bowel show no acute abnormality. The appendix is normal. There is mild wall thickening of the cecum. Vasculature is normal. Kidneys are normal without hydroureteronephrosis. Pelvis: The urinary bladder is collapsed. The rectum is normal. Uterus and adnexa show no acute abnormality. Impression: 1. Wall thickening of the cecum and proximal ascending colon. Colitis is possible. Inflammatory infectious cause is possible. Follow-up with colonoscopy to exclude underlying lesion after resolution of acute symptoms 2. No other acute abnormality identified. Reported By:
[2019-01-11 05:18] LABS: BASOPHILS # (AUTO) 0.1 X10^3/uL (0.0-0.1); BASOPHILS % (AUTO) 0.8 % (0.2-1.0); EOSINOPHILS % (AUTO) 0.6 % (0.9-2.9); HEMATOCRIT 34.9 % (36.0-47.0); LYMPHOCYTES # (AUTO) 2.6 X10^3/uL (1.3-2.9); LYMPHOCYTES % (AUTO) 32.8 % (21.0-51.0); MEAN CORPUSCULAR HEMOGLOBIN 29.6 pg (27.0-34.0); MEAN CORPUSCULAR HGB CONC 34.3 g/dL (33.0-35.0); MEAN CORPUSCULAR VOLUME 86.3 fL (80.0-100.0); MEAN PLATELET VOLUME 7.5 fL (7.4-11.0); MONOCYTES # (AUTO) 0.4 x10^3/uL (0.3-0.8); MONOCYTES % (AUTO) 5.3 % (0.0-13.0); NEUTROPHILS # (AUTO) 4.8 x10^3/uL (2.2-4.8); NEUTROPHILS % (AUTO) 60.5 % (42.0-75.0); PLATELET COUNT 286 X10^3/uL (150.0-450.0); RED BLOOD COUNT 4.04 X10^6/uL (3.5-5.4); RED CELL DISTRIBUTION WIDTH 12.6 % (11.6-16.5); WHITE BLOOD COUNT 7.9 X10^3/uL (3.6-10.0)
[2019-01-11 05:23] LABS: ALANINE AMINOTRANSFERASE 21 Units/L (12-78); ALBUMIN 3.3 g/dL (3.4-5.0); ALKALINE PHOSPHATASE 51 Units/L (46-116); ASPARTATE AMINO TRANSFERASE 13 Units/L (15-37); BLOOD UREA NITROGEN 8 mg/dL (7-18); CALCIUM 8.1 mg/dL (8.5-10.1); CARBON DIOXIDE 22.7 mmol/L (21-32); CHLORIDE 107 mmol/L (98-107); COR CA(FOR HYPOALB) 8.7 mg/dL (8.5-10.1); CREATININE 1.01 mg/dL (0.55-1.02); SODIUM 141 mmol/L (136-145); TOTAL PROTEIN 6.7 g/dL (6.4-8.2); eGFR NON BLACK RACES > 60 (>60)
[2019-01-11] MEDS ORDERED: MAGNESIUM SULFATE 1 GRAM/100 mL PREMIX 1 GM/100 ML BAG IV PRN (06:04)
[2019-01-11] MEDS ORDERED: K-DUR TAB 20 MEQ PO PRN (06:04)
[2019-01-11] MEDS ORDERED: POTASSIUM CHLORIDE LIQ 20 MEQ UDC PO PRN (06:04)
[2019-01-11] MEDS ORDERED: KLOR-CON PO PRN (06:04)
[2019-01-11] MEDS ORDERED: POTASSIUM CHL 60 MEQ/NS 0.45% 500 ML IV PRN (06:04)
[2019-01-11] MEDS ORDERED: K-RIDER 10 MEQ/NS 100 ML 10 MEQ/100 ML BAG IV PRN (06:04)
[2019-01-11] MEDS ORDERED: MICRO K EXTEN CAP 10 MEQ PO PRN (06:04)
[2019-01-11] MEDS ORDERED: POTASSIUM CHL 40 MEQ/NS 0.45% 500 ML IV PRN (06:04)
[2019-01-11] MEDS: NS 1000 ML 1,000 ML IV SCH ×2 (06:06→09:30)
[2019-01-11] MEDS: LEVSIN/MAALOX/LIDOC VISC PO SCH (09:27)
[2019-01-11] MEDS: ZESTRIL TAB 5 MG PO SCH ×2 (09:28→09:30)
[2019-01-11] MEDS: PROTONIX INJ 40 MG VIAL IVP SCH (09:29)
[2019-01-11 14:01] VITALS: BP 119/58
[2019-01-11] MEDS ORDERED: WELLBUTRIN XL 300 MG (DAILY) PO SCH (21:00)
== END 2019-01-11 14:09 | disposition home or self-care (01) ==
LOC: MED/SURG
PROVIDERS: ADMIT Internal Medicine; ATTEND Internal Medicine
DX: K56.7 Ileus, unspecified; K21.9 Gastro-esophageal reflux disease without esophagitis; R11.2 Nausea with vomiting, unspecified; F41.8 Other specified anxiety disorders; E86.0 Dehydration; R19.7 Diarrhea, unspecified; R53.1 Weakness; K52.89 Other specified noninfective gastroenteritis and colitis; R10.84 Generalized abdominal pain; I10 Essential (primary) hypertension
CPT/HCPCS: 36415; 74022; 74177; 80053; 81001; 82150; 83690; 83735; 85025; 96367; 96374; A4222; C9113; S0106; G0378; J2270; J2405; J2550; J2765; J7030

== ENCOUNTER 2024-12-25 16:35 | Observation (INO) ==
[2024-12-25] MEDS ORDERED: NS 250 ML IV 25 ML IV PRN (16:51)
[2024-12-25] MEDS ORDERED: CONSULT PHARMACY - POTASSIUM & MAGNESIUM XX SCH (17:00)
[2024-12-25] MEDS: NORCO 5/325 MG TAB PO PRN (17:13)
[2024-12-25] MEDS: NS 1,000 ML IV 1,000 ML IV SCH (17:15)
[2024-12-25 17:26] LABS: MEAN PLATELET VOLUME 7.4 fL (7.4-11.0); RED CELL DISTRIBUTION WIDTH 12.9 % (11.6-16.5)
[2024-12-25 17:29] LABS: ERYTHROCYTE SEDIMENTATION RATE 53 MM/HOUR (0-20)
[2024-12-25 17:33] VITALS: O2SAT 100
[2024-12-25 17:35] LABS: CREATININE 0.97 mg/dL (0.55-1.02); eGFR NON BLACK RACES > 60 (>60)
[2024-12-25] MEDS ORDERED: AMBIEN PO PRN (17:55)
--- NOTE | 2024-12-25 18:23 | EKG ---
Test Reason : "PASSED OUT" Blood Pressure : */* mmHG Vent. Rate : 77 BPM Atrial Rate : 77 BPM P-R Int : 160 ms QRS Dur : 78 ms QT Int : 382 ms P-R-T Axes : 60 61 62 degrees QTc Int : 432 ms Normal sinus rhythm Normal ECG No previous ECGs available Confirmed by Ramiro Jaime MD ([id number]) on 12/25/2024 7:23:41 PM Referred By: Confirmed By: Ramiro Jaime MD
[2024-12-25] MEDS: ZOSYN VIAL 3.375 GRAMS 3.375 G in NS 100 ML IV 100 ML IV SCH (18:24)
[2024-12-25 18:25] VITALS: BMI 22.9
[2024-12-25] MEDS: WELLBUTRIN XL 300 MG (DAILY) PO SCH (20:54)
[2024-12-25] MEDS: KLOR-CON PO SCH (20:54)
--- NOTE | 2024-12-25 21:01 | CT ---
EXAM: BRAIN W/O CON HISTORY: Abscess tooth COMPARISON: MRI pituitary from January 16, 2024 TECHNIQUE: Axial non-contrast images of the head with coronal and sagittal reformats. Radiation dose: 817.54 mGy-cm total DLP FINDINGS: No abnormal areas of acute attenuation in the brain parenchyma. Fonseca-white differentiation remains intact. No intracranial, extra-axial, fluid collection. No hemorrhage. No mass, mass effect or midline shift. No ventriculomegaly. No acute fracture. Sinuses are well aerated. Mastoid air cells are well aerated. Globes and intraorbital contents are unremarkable. IMPRESSION: No acute intracranial abnormality identified. THIS IS AN ELECTRONICALLY VERIFIED FINAL REPORT 12/25/2024 8:58 PM - Electronically signed by Jan Lowe MD
--- NOTE | 2024-12-25 21:18 | CT ---
EXAM: FACIAL W/O CON HISTORY: Abscess tooth COMPARISON: CT head without contrast from December 25, 2024 TECHNIQUE: Non-contrast axial CT maxillofacial images were obtained with coronal and sagittal reformats for further evaluation. Radiation dose: 198.94 mGy-cm total DLP FINDINGS: No abscess identified. Numerous dental caries. Sinuses, mastoid air cells and middle ears are well-aerated. Globes and intraorbital contents appear normal. Imaged portion of the brain and intracranial contents are unremarkable. IMPRESSION: No abscess identified. Numerous dental caries. THIS IS AN ELECTRONICALLY VERIFIED FINAL REPORT 12/25/2024 9:15 PM - Electronically signed by Jan Lowe MD
[2024-12-26 05:03] LABS: MEAN PLATELET VOLUME 7.8 fL (7.4-11.0); RED CELL DISTRIBUTION WIDTH 13.0 % (11.6-16.5)
[2024-12-26 05:12] LABS: CREATININE 1.13 mg/dL (0.55-1.02); eGFR NON BLACK RACES 55 (>60)
[2024-12-26] MEDS ORDERED: CONSULT PHARMACY - POTASSIUM & MAGNESIUM XX SCH ×2 (07:00)
[2024-12-26] MEDS: COLACE CAP 100 MG PO SCH (08:23)
[2024-12-26] MEDS: PROTONIX TAB 40 MG PO SCH (08:23)
[2024-12-26] MEDS: NS + KCL 20 MEQ/L 1,000 ML with MAGNESIUM SULFATE 50% INJ VIAL 1 G IV SCH (08:24)
[2024-12-26 08:31] VITALS: RESP 20
[2024-12-26 08:31] LABS: CHOL/HDL RATIO 4.1 (0.0-5.0); TSH (3RD GENERATION) 3.05 uIU/mL (0.358-3.74)
[2024-12-26] MEDS ORDERED: POTASSIUM CHLORIDE LIQ PO SCH (09:00)
[2024-12-26 12:36] VITALS: TEMP 98
[2024-12-26] MEDS: ZOFRAN INJ 4 MG VIAL ONE (15:36)
[2024-12-26 16:13] VITALS: BP 119/72; PULSE 82
== END 2024-12-26 17:54 | disposition home or self-care (01) ==
LOC: ICU
PROVIDERS: ADMIT Internal Medicine; ATTEND Internal Medicine
DX: E87.6 Hypokalemia; R55 Syncope and collapse; R70.0 Elevated erythrocyte sedimentation rate; E86.0 Dehydration; E83.42 Hypomagnesemia; K08.89 Other specified disorders of teeth and supporting structures